=== PATIENT | female | born 1965 | race Caucasian/White ===

== ENCOUNTER 2017-08-04 20:51 | Emergency (ER) | payer SELFPAY ==
[2017-08-04 21:10] VITALS: BP 129/83
[2017-08-04] MEDS ORDERED: Promethazine TAB* 25 MG PO ONE (21:45)
[2017-08-04] MEDS ORDERED: diPHENhydraMINE PO* 50 MG PO ONE (21:45)
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
== END 2017-08-04 22:05 | disposition home or self-care (01) ==
LOC: UCEAST 20:51
DX: F11.10 Opioid abuse, uncomplicated (principal); M79.2 Neuralgia and neuritis, unspecified; F41.9 Anxiety disorder, unspecified; F17.200 Nicotine dependence, unspecified, uncomplicated
CPT/HCPCS: 99202; A9270-GY; G0463

== ENCOUNTER 2017-08-13 16:35 | Emergency (ER) | payer SELFPAY ==
[2017-08-13 16:48] VITALS: BP 115/76
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
== END 2017-08-13 17:35 | disposition home or self-care (01) ==
LOC: UCEAST 16:35
DX: F41.9 Anxiety disorder, unspecified (principal); F43.10 Post-traumatic stress disorder, unspecified; X58.XXXD Exposure to other specified factors, subsequent encounter; Z76.0 Encounter for issue of repeat prescription; F17.210 Nicotine dependence, cigarettes, uncomplicated
CPT/HCPCS: 99212; G0463